=== PATIENT | female | born 1945 | race African-American/Black ===

== ENCOUNTER 2019-05-12 09:42 | Outpatient (CLI) | payer MEDICARE ==
[~2019-05-12] VITALS: Ht 154.9 cm; Wt 61.2 kg
[~2019-05-12 09:42] MED LIST: AMOX1TAB58 PO; DOXY100C14 PO; HYDR-2761 PO; IPRA3AMP29 NEB; LACT1CAP19 PO; PRED50TA PO
[2019-05-12 10:38] LABS: BASO % 1 % (0-3); EOS # 0.1 x10^3/uL (0.0-0.7); EOS % 1 % (0-3); HEMATOCRIT 36.8 % (36.0-47.0); HEMOGLOBIN 12.2 g/dL (12.0-15.5); LYMPH # 1.1 x10^3/uL (1.0-4.8); LYMPH % 16 % (24-48); MEAN CORPUSCULAR HEMOGLOBIN 29 pg (25-35); MEAN CORPUSCULAR HGB CONC 33 g/dL (31-37); MEAN CORPUSCULAR VOLUME 87 fL (79-100); MONO # 0.6 x10^3/uL (0.0-1.1); MONO % 9 % (0-9); NEUT # 4.9 x10^3/uL (1.8-7.7); NEUT % 73 % (31-73); PLATELET COUNT 176 x10^3/uL (140-400); RED BLOOD COUNT 4.24 x10^6/uL (3.50-5.40); WHITE BLOOD COUNT 6.7 x10^3/uL (4.0-11.0)
[2019-05-12] MEDS ORDERED: LIDOCAINE 1%/EPI 1:100,000 20 ML VIAL. ONE (10:38)
[2019-05-12 10:40] LABS: PROTHROMBIN TIME PATIENT 12.1 SEC (11.7-14.0)
[2019-05-12] MEDS ORDERED: HEPARIN PF 500 UNIT/5 ML DISP.SYRIN. ONE (10:56)
[2019-05-12 11:37] VITALS: BP 145/83
[2019-05-12 12:23] LABS: ANISOCYTOSIS SLIGHT; PLT ESTIMATE ADEQUATE (ADEQUATE); TEAR DROP CELLS OCC
[2019-05-12] MEDS ORDERED: MIDAZOLAM HCL/PF 2 MG/2 ML VIAL. ONE (12:59)
[2019-05-12] MEDS ORDERED: ceFAZolin SODIUM IV Push 1 GM VIAL. IVP ONE ×2 (12:59→13:30)
[2019-05-12] MEDS ORDERED: fentaNYL PF VIAL 100 MCG/2 ML VIAL ONE (13:00)
[2019-05-12] MEDS ORDERED: HEPARIN PF 500 UNIT/5 ML DISP.SYRIN. IVP ONE (13:30)
[2019-05-12] MEDS ORDERED: fentaNYL PF VIAL 100 MCG/2 ML VIAL IV ONE (13:30)
[2019-05-12] MEDS ORDERED: LIDOCAINE 1%/EPI 1:100,000 20 ML VIAL. INJ ONE (13:30)
[2019-05-12] MEDS ORDERED: MIDAZOLAM HCL/PF 2 MG/2 ML VIAL. IV ONE (13:30)
[2019-05-12 13:50] VITALS: BP 147/94
[2019-05-12 13:55] VITALS: BP 185/82
[2019-05-12 14:10] VITALS: BP 150/82
[2019-05-12 14:25] VITALS: BP 132/102
[2019-05-12 14:53] VITALS: BP 152/86
--- NOTE | 2019-05-12 15:08 | RAD ---
Procedure: Port-A-Cath placement Clinical Indication: Adult female with lung cancer Sedation: Conscious sedation was administered with a total intraprocedural qoet-xy-lngh time of 33 minutes. The patient was monitored by a qualified independent observer throughout the time of sedation. Please refer to the medical record for exact doses of medications utilized to achieve moderate sedation. Antibiotics: Antibiotic was administered intravenously within 1 hour of the procedure start time. Exposure: Fluoro Time: 0.1 minutes Images: 1 Contrast: None Sterility: All elements of maximal sterile barrier technique including the use of a cap, mask, sterile gown, sterile gloves, large sterile sheet, appropriate hand hygiene, and 2% chlorhexidine for cutaneous antisepsis (or acceptable alternative antiseptic per current guidelines) were followed for this procedure. Consent: The procedure was explained in its entirety to the patient or the patients designated title insurance sales representative by a member of the treatment team, including a discussion of the risks, benefits and commonly accepted alternatives to the procedure, as well as the expected consequences of no therapy whatsoever. Discussion of the risks included, but was not limited to, those that are most frequent and those that are rare but possibly severe or life-threatening, as well as the possibility of unforeseen complications. Technique and Findings: Ultrasound interrogation of the right neck revealed patency and compressibility of the internal jugular vein. A hardcopy ultrasound image was recorded as a 21-gauge micropuncture needle was used to gain access to this vessel. The needle was exchanged over a wire for a peel-away sheath. The skin over the ipsilateral anterior chest wall was then copiously anesthetized with 1% lidocaine plus epinephrine, and a small dermatotomy was made. Blunt dissection techniques were used to create a pocket for the port. The port was then tunneled subcutaneously towards the neck dermatotomy then deployed under fluoroscopic guidance through the peel-away sheath such that the distal tip resided in the proximal right atrium. The port was accessed and found to flush and aspirate with ease. The port was packed with heparin. The pocket was copiously irrigated with sterile saline then closed with deep interrupted and running subcuticular 4-0 Vicryl suture. Dermabond was used to close the neck dermatotomy. Complications: No immediate Impression: 1. Ultrasound and fluoroscopic guided placement of a right IJ Port-A-Cath as described. This port is suitable for use.
--- NOTE | 2019-05-12 15:19 | NUR ---
Discharge Note: CASEY GARCIA Discharge instructions and discharge home medications reviewed with Patient and Daughter in law, and a copy given. All questions have been answered and understanding verbalized. The following instructions and handouts were given: Post moderate sedtion and Implanted port insturctions. Discontinued lines and drains: Right hand IV dc'd and tip intact. Patient discharged to home with Daughter in law via Private car.
== END 2019-05-12 15:26 | disposition home or self-care (01) ==
LOC: INTRAD 09:42
PROVIDERS: ATTEND Internal Medicine Hematology & Oncology
DX: Z45.2 Encounter for adjustment and management of vascular access device (principal); C34.90 Malignant neoplasm of unspecified part of unspecified bronchus or lung; Z79.01 Long term (current) use of anticoagulants
CPT/HCPCS: 36415; 36561; 76937; 77001; 85025; 85610; 99152; 99153; C1751; C1769; C1892; J0690; J2250; J3010; J3490

== ENCOUNTER → 2019-05-20 | Outpatient (CLI) | payer MEDICARE ==
[2019-05-06 11:00] VITALS: BP 132/66
[~2019-05-20] MED LIST changes: +GADOTERATE 7.5 MMOL/15ML VIAL. IVP ONE
--- NOTE | 2019-05-20 10:59 | RAD ---
MRI Brain with and without contrast History: Lung cancer Technique: Multiplanar, multi sequential pre and postcontrast MR imaging was performed of the brain. Comparison: None Findings: There is no nodular parenchymal or leptomeningeal enhancement, midline shift or extra-axial fluid collection. Ventricular size is within normal limits. There is mild prominence of the supratentorial subarachnoid spaces somewhat greater of the parietal lobes likely due to atrophy. There are old lacunar infarcts of the bilateral basal ganglia, thalami, and rose radiata. There is encephalomalacia with cortical involvement as well as gliosis centered in the right parasagittal parietal lobe and superior occipital lobe. There are old lacunar infarcts of the bilateral wilfred. There is other scattered multifocal wozc-yw-oqpaesqu T2 and FLAIR hyperintense signal abnormality of the supratentorial parenchyma bilaterally. There is scattered hemosiderin deposition, evidence of old hemorrhage, most notable of the left caudate nucleus and scattered small foci such as of the bilateral thalami, bilateral basal ganglia, wilfred, and bilateral cerebellum. There is preservation of the major intracranial flow-voids at the skull base. There has been lens surgery bilaterally. Mastoid air cells are overall aerated. Cerebellar tonsils are normal in location. There is preserved marrow signal of the clivus. There is no significant abnormality of pineal gland or pituitary gland. Impression: 1. There is no abnormal intracranial enhancement. 2. There are old infarcts as described, other scattered T2 and FLAIR hyperintense signal abnormality nonspecific although probably due to chronic microvascular ischemic disease. There are multiple old lacunar infarcts as stated, also scattered foci of old microhemorrhage. There is cortical involvement of the old infarct of the right parietal occipital lobes. Electronically signed by: Lloyd Corbin MD (05/20/2019 10:56 AM) [email or web address]
--- NOTE | 2019-05-23 19:13 | RAD ---
EXAM: PET W CT SKULL TO MIDTHIGH EXAM DATE: 05/20/2019 INDICATION: Lung cancer. Initial staging. RADIOPHARMACEUTICAL: 14.6 mCi of F-18 Fluorodeoxyglucose (FDG) I.V. via the right antecubital fossa. TECHNIQUE: Patient weight: 135 pounds. Following at least four-hour fasting, the patient's blood glucose was 80 mg/dl. Approximately 1 hour after administration of FDG, overlapping emission scanning was performed from the orbital meatal line through the pelvis. A low-dose CT was performed for attenuation correction purposes and anatomic localization. Fused images of PET and CT were reviewed. Any standardized uptake values (SUV) reported are maximum values within a volume region of interest, expressed in gm/ml. COMPARISON: CT chest with IV contrast of 05/03/2019 FINDINGS: PET: In the head and neck, right neck mass resembling a level 2 cervical lymph node at the angle of the mandible shows uptake to max SUV of 10.1. Left intraparotid 2.2 cm mass shows uptake to max SUV of 13.1. In the chest, left upper lobe lung mass shows uptake to max SUV of 12.3. AP window lymphadenopathy shows uptake to max SUV of 11.0. No other abnormal FDG uptake identified with the shymp-ep-idef. In particular, no abnormal FDG uptake in the adrenals CT: No significant intracranial abnormalities on noncontrast CT. No additional enlarged cervical lymph nodes besides the hypermetabolic right level 2 node and possible intraparotid left cervical node (versus a salivary gland tumor such as a Warthin tumor) noted on PET. Right tunneled chest port with tip at the cavoatrial junction. Multivessel coronary calcifications. Centrilobular emphysema. Dominant left upper lobe lung mass measures 4.7 x 3.8 x 5.2 cm (AP by transverse by craniocaudal). Mediastinal adenopathy. This is better evaluated on the postcontrast imaging but measures at least 2.2 cm short axis diameter in the AP window. No pleural effusions. Abdomen and pelvis shows fullness to the left greater than right adrenal glands without discrete mass. Dense arterial calcifications and tortuosity is present. Right os acromiale. Osteopenia. No aggressive osseous lesions. IMPRESSION: 1. Left upper lobe 5 cm lung mass with mediastinal adenopathy shows abnormal FDG uptake to max SUV of 12.3 and is consistent with a primary lung malignancy with mediastinal tru metastases. 2. There are bilateral neck masses demonstrating abnormal FDG uptake. These could represent enlarged lymph nodes or less likely salivary gland tumors, especially on the left which is within the left parotid gland. The right mass more closely resembles on CT a level 2 cervical lymph noted rather than a mass between the deep and superficial lobes of the right parotid gland. Ultrasound could be pursued in further evaluation of these masses if it would assist in clinical management. Electronically signed by: Litzy Freire MD (05/23/2019 7:09 PM) [facility]
== END | disposition home or self-care (01) ==
LOC: PETSC 11:34
PROVIDERS: ATTEND Internal Medicine Hematology & Oncology
DX: C34.12 Malignant neoplasm of upper lobe, left bronchus or lung (principal); J43.2 Centrilobular emphysema; G93.89 Other specified disorders of brain; R91.8 Other nonspecific abnormal finding of lung field; R59.0 Localized enlarged lymph nodes; M85.88 Other specified disorders of bone density and structure, other site; I25.10 Atherosclerotic heart disease of native coronary artery without angina pectoris
CPT/HCPCS: 70553; 78815; A9552; A9575

== ENCOUNTER → 2019-08-11 | Outpatient (CLI) | payer MEDICARE ==
[2019-05-06 11:00] VITALS: BP 132/66
[~2019-08-11] MED LIST changes: +CONTRAST GIVEN. MC PRN; -GADOTERATE 7.5 MMOL/15ML VIAL. IVP ONE; +IOHEXOL 240 MG/ML 50ML VIAL. PO ONE; +IOHEXOL 300 MG/ML 100ML VIAL. IV ONE
[2019-08-11 12:35] LABS: CREATININE 0.7 mg/dL (0.6-1.0); GFR 98.7
--- NOTE | 2019-08-11 15:42 | RAD ---
Exam: CT chest and abdomen without intravenous contrast Indication: Small cell lung cancer Comparison: CT chest Technique: Helical CT imaging performed of the chest and abdomen without intravenous contrast. Sagittal and coronal reformats were obtained. One or more of the following individualized dose reduction techniques were utilized for this examination: 1. Automated exposure control 2. Adjustment of the mA and/or kV according to patient size 3. Use of iterative reconstruction technique. Findings: CHEST: Heart and great vessels: Heart is normal in size. No pericardial effusion. There is calcified coronary artery atherosclerosis. Thoracic aorta is normal in caliber. Mild calcified aortic atherosclerosis. Right IJ port tip terminates at the superior cavoatrial junction. Mediastinum and luis: Enlarged AP window lymph node is difficult to measure due to lack of IV contrast but appears smaller, now approximately 2.3 x 2.2 cm, previously 3.0 x 3.3 cm. No new lymphadenopathy. Lungs and pleura: A left suprahilar mass has decreased in size, now 2.9 x 2.1 cm, previously 5.5 x 3.8 cm (image 21, series 2). No new pulmonary nodule. There is mild centrilobular emphysema. No pleural effusion. Chest wall and bones: No axillary lymphadenopathy. Mild thoracic degenerative disc disease. ABDOMEN AND PELVIS: Evaluation of the abdomen mildly limited due to motion artifact. Liver: Normal. Gallbladder/Biliary Tree: There is sludge or vicarious excretion of contrast by gallbladder. Bile ducts are normal. Pancreas: Normal. Spleen: No splenomegaly. Calcified splenic granulomas. Adrenal Glands: Nonspecific thickening of adrenal glands is unchanged. Kidneys and proximal ureters: Normal. No nephrolithiasis or hydronephrosis. Stomach, and visualized portion of the bowel: Normal. Vasculature: No abdominal aortic aneurysm. Moderate calcified aortoiliac atherosclerosis. Lymph Nodes: Unchanged right retrocrural lymph nodes at the level of the diaphragm measuring up to 1.3 cm short axis (image 12, series 3). Small periaortic lymph nodes are unchanged. Peritoneum and retroperitoneum: No free fluid or free air. Bones: No acute osseous abnormality. IMPRESSION: 1. Decreased size of left suprahilar mass. Left AP window lymph node also appears smaller, although comparison is somewhat limited due to lack of IV contrast. 2. Unchanged mildly enlarged right retrocrural lymph nodes at the level the diaphragm. Electronically signed by: Paola Brandon MD (08/11/2019 3:39 PM) [id number]
== END | disposition home or self-care (01) ==
LOC: CT 12:09
PROVIDERS: ATTEND Internal Medicine Hematology & Oncology
DX: C34.12 Malignant neoplasm of upper lobe, left bronchus or lung (principal); R91.1 Solitary pulmonary nodule; R59.0 Localized enlarged lymph nodes; I25.10 Atherosclerotic heart disease of native coronary artery without angina pectoris; I70.0 Atherosclerosis of aorta; J43.2 Centrilobular emphysema; D73.89 Other diseases of spleen; I70.8 Atherosclerosis of other arteries
CPT/HCPCS: 36415; 71250; 74150; 82565; 84520; Q9966

== ENCOUNTER → 2019-09-14 | Outpatient (CLI) | payer MEDICARE ==
[2019-05-06 11:00] VITALS: BP 132/66
[~2019-09-14] MED LIST changes: -CONTRAST GIVEN. MC PRN; -IOHEXOL 240 MG/ML 50ML VIAL. PO ONE; -IOHEXOL 300 MG/ML 100ML VIAL. IV ONE
[2019-09-14 15:34] LABS: BASO % 1 % (0-3); EOS # 0.3 x10^3/uL (0.0-0.7); EOS % 9 % (0-3); HEMOGLOBIN 11.7 g/dL (12.0-15.5); LYMPH # 0.8 x10^3/uL (1.0-4.8); LYMPH % 23 % (24-48); MEAN CORPUSCULAR HEMOGLOBIN 32 pg (25-35); MEAN CORPUSCULAR HGB CONC 33 g/dL (31-37); MEAN CORPUSCULAR VOLUME 95 fL (79-100); MONO # 0.3 x10^3/uL (0.0-1.1); MONO % 10 % (0-9); NEUT # 1.9 x10^3/uL (1.8-7.7); NEUT % 57 % (31-73); PLATELET COUNT 113 x10^3/uL (140-400); RED BLOOD COUNT 3.68 x10^6/uL (3.50-5.40); RED CELL DISTRIBUTION WIDTH 18.5 % (11.5-14.5); WHITE BLOOD COUNT 3.3 x10^3/uL (4.0-11.0)
[2019-09-14 15:48] LABS: CALCIUM 9.1 mg/dL (8.5-10.1); CREATININE 0.9 mg/dL (0.6-1.0); GFR 73.9; POTASSIUM 4.1 mmol/L (3.5-5.1)
[2019-09-14 15:53] LABS: ALBUMIN 3.6 g/dL (3.4-5.0); DIRECT BILIRUBIN 0.1 mg/dL (0.0-0.2); TOTAL BILIRUBIN 0.4 mg/dL (0.2-1.0); TOTAL PROTEIN 7.3 g/dL (6.4-8.2)
== END | disposition home or self-care (01) ==
LOC: ONCLAB 15:00
PROVIDERS: ATTEND Physician Assistant
DX: C34.12 Malignant neoplasm of upper lobe, left bronchus or lung (principal)
CPT/HCPCS: 36415; 80048; 80076; 83615; 85025

== ENCOUNTER 2020-03-15 19:15 | Emergency (ER) | payer MEDICARE ==
[~2020-03-15] VITALS: Ht 154.9 cm; Wt 63.6 kg
[2020-03-15] MEDS ORDERED: methylPREDNISolone SOD SUCC PF 125 MG/2 ML VIAL. IV ONE (19:30)
[2020-03-15 20:00] LABS: BASO % 1 % (0-3); EOS # 0.1 x10^3/uL (0.0-0.7); EOS % 3 % (0-3); HEMATOCRIT 39.2 % (36.0-47.0); HEMOGLOBIN 12.9 g/dL (12.0-15.5); LYMPH # 0.8 x10^3/uL (1.0-4.8); LYMPH % 23 % (24-48); MEAN CORPUSCULAR HEMOGLOBIN 30 pg (25-35); MEAN CORPUSCULAR HGB CONC 33 g/dL (31-37); MEAN CORPUSCULAR VOLUME 90 fL (79-100); MONO # 0.2 x10^3/uL (0.0-1.1); MONO % 7 % (0-9); NEUT # 2.3 x10^3/uL (1.8-7.7); NEUT % 67 % (31-73); PLATELET COUNT 187 x10^3/uL (140-400); RED BLOOD COUNT 4.36 x10^6/uL (3.50-5.40); WHITE BLOOD COUNT 3.5 x10^3/uL (4.0-11.0)
--- NOTE | 2020-03-15 20:05 | PHYS DOC ---
Past Medical History Past Medical History: COPD Past Surgical History: Hysterectomy Smoking Status: Current Every Day Smoker Alcohol Use: Occasionally General Adult EDM: Chief Complaint: SHORTNESS OF BREATH HPI: HPI: Patient is a 74 year old female who presents with shortness of breath for the last 3 days with wheezing and she has a chronic cough. She states she last used her albuterol machine yesterday. She states it did help. Patient denies chest pain, headache, dizziness, abdominal pain, nausea, vomiting, diarrhea, fever, numbness or tingling, vision changes, nasal congestion. Denies any pain at this time. Patient has a history of stage III lung cancer, COPD, smoker. Patient's daughter states that the patient has had chemo and radiation. She sees Dr. Kirkland and now goes to . Review of Systems: Review of Systems: Constitutional: Denies fever or chills. [] Eyes: Denies change in visual acuity. [] HENT: Denies nasal congestion or sore throat. [] Respiratory: + cough or +shortness of breath. [] Cardiovascular: Denies chest pain or edema. [] GI: Denies abdominal pain, nausea, vomiting, bloody stools or diarrhea. [] : Denies dysuria. [] Musculoskeletal: Denies back pain or joint pain. [] Integument: Denies rash. [] Neurologic: Denies headache, focal weakness or sensory changes. [] Endocrine: Denies polyuria or polydipsia. [] Lymphatic: Denies swollen glands. [] Psychiatric: Denies depression or anxiety. [] Heart Score: Risk Factors: Risk Factors: DM, Current or recent (<one month) smoker, HTN, HLP, family history of CAD, obesity. Risk Scores: Score 0 - 3: 2.5% MACE over next 6 weeks - Discharge Home Score 4 - 6: 20.3% MACE over next 6 weeks - Admit for Clinical Observation Score 7 - 10: 72.7% MACE over next 6 weeks - Early Invasive Strategies Current Medications: Current Medications Medications (Trade) Dose Ordered Sig/Xuan Start Time Stop Time Status Last Admin Dose Admin Methylprednisolone Sodium Succinate (SOLU-Medrol 125MG VIAL) 125 mg 1X ONCE 03/15/20 19:30 03/15/20 19:32 DC 03/15/20 19:48 125 MG Allergies: Allergies: Allergies Coded Allergies Type Severity Reaction Last Updated Verified codeine Allergy Severe Hives 05/02/19 Yes Physical Exam: PE: Constitutional: Well developed, well nourished, no acute distress, non-toxic appearance. [] HENT: Normocephalic, atraumatic, bilateral external ears normal, oropharynx moist, no oral exudates, nose normal. [] Eyes: PERRLA, EOMI, conjunctiva normal, no discharge. [] Neck: Normal range of motion, no tenderness, supple, no stridor. [] Cardiovascular:Heart rate tachy regular rhythm, no murmur [] Lungs & Thorax: Bilateral upper breath sounds expiratory inspiratory wheezing, lower lobes diminished to auscultation [] Abdomen: Bowel sounds normal, soft, no tenderness, no masses, no pulsatile masses. [] Skin: Warm, dry, no erythema, no rash. [] Back: No tenderness, no CVA tenderness. [] Extremities: No tenderness, no cyanosis, no clubbing, ROM intact, no edema. [] Neurologic: Alert and oriented X 3, normal motor function, normal sensory function, no focal deficits noted. [] Psychologic: Affect normal, judgement normal, mood normal. [] Current Patient Data: Labs: Laboratory Tests Test 03/15/20 19:48 White Blood Count 3.5 x10^3/uL (4.0-11.0) L Red Blood Count 4.36 x10^6/uL (3.50-5.40) Hemoglobin 12.9 g/dL (12.0-15.5) Hematocrit 39.2 % (36.0-47.0) Mean Corpuscular Volume 90 fL (79-100) Mean Corpuscular Hemoglobin 30 pg (25-35) Mean Corpuscular Hemoglobin Concent 33 g/dL (31-37) Red Cell Distribution Width 15.0 % (11.5-14.5) H Platelet Count 187 x10^3/uL (140-400) Neutrophils (%) (Auto) 67 % (31-73) Lymphocytes (%) (Auto) 23 % (24-48) L Monocytes (%) (Auto) 7 % (0-9) Eosinophils (%) (Auto) 3 % (0-3) Basophils (%) (Auto) 1 % (0-3) Neutrophils # (Auto) 2.3 x10^3/uL (1.8-7.7) Lymphocytes # (Auto) 0.8 x10^3/uL (1.0-4.8) L Monocytes # (Auto) 0.2 x10^3/uL (0.0-1.1) Eosinophils # (Auto) 0.1 x10^3/uL (0.0-0.7) Basophils # (Auto) 0.0 x10^3/uL (0.0-0.2) Laboratory Tests 03/15/20 19:48 EKG: EK and read by Dr Chen as Sinus Tachycardia Rhythm and no stemi [] Radiology/Procedures: Radiology/Procedures: [] Impression: [facility] [id number] [place] [address] IMAGING REPORT Signed PATIENT: CASEY GARCIA: [id number] : 1945 LOCATION: ER AGE: 74 SEX: F EXAM STATUS: REG ER ORD. PHYSICIAN: KELSEY CAST APRN REASON: soa PROCEDURE: PORTABLE CHEST 1V Exam: Chest one view INDICATION: Short of air TECHNIQUE: Frontal view of the chest Comparisons: 05/05/2019 FINDINGS: 1.8 cm nodule in the left suprahilar region. The cardiomediastinal silhouette and pulmonary vessels are within normal limits. The lung and pleural spaces are clear. IMPRESSION: No acute cardiopulmonary process. Decreased size of previously seen lung mass Electronically signed by: Misti Coronado MD (03/15/2020 8:16 PM) [facility] DICTATED and SIGNED BY: MISTI CORONADO MD DATE: 03/15/[id number] 0 [facility] [address] [place], [place] [id number] IMAGING REPORT Signed PATIENT: CASEY GARCIA: [id number] : 1945 LOCATION: ER AGE: 74 SEX: F EXAM STATUS: REG ER ORD. PHYSICIAN: BAFUS,KELSEY M PHYSICIST [employer]STICS REASON: soa, lung ca, OMNI 350 80 ML IV PROCEDURE: CT ANGIOGRAPHY CHEST Exam: CT of chest with contrast INDICATION: Short of air, lung TECHNIQUE: Sequential axial images through the chest obtained following the administration of 80 mL of Omni 350 IV contrast. Sagittal and coronal reformatted images were reconstructed from the axial data and reviewed. 3-D reformatted images were reconstructed from the axial data and reviewed. Comparisons: 08/11/2019 FINDINGS: Visualized portions of the thyroid are unremarkable. No enlarged mediastinal lymph nodes are identified. Heart size is normal. No pericardial effusion. Trace pericardial effusion. Moderate coronary artery calcification. Thoracic aorta has a normal course and caliber. Pulmonary artery is not enlarged. No pulmonary embolus identified within the main, lobar or segmental pulmonary Airways are patent. No consolidation or pneumothorax. Mild centrilobular emphysematous change noted, likely upper lungs. No suspicious lung nodules are identified. There is redemonstration of a partially calcified mass at the upper lobe measuring approximately 2.6 cm, not significant changed compared to the prior study. No pleural effusion or thickening. Visualized upper abdomen. No suspicious osseous lesions or acute fractures IMPRESSION: No pulmonary embolus identified within the main, lobar or segmental pulmonary arteries. Exposure: One or more of the following in the visualized dose reduction techniques were utilized for this examination: 1. Automated exposure control 2. Adjustment of the MA and/or KV according to patient size 3. Use of iterative of reconstructive technique Electronically signed by: Misti Coronado MD (03/15/2020 9:28 PM) [facility] DICTATED and SIGNED BY: MISTI CORONADO MD DATE: 03/15/[id number] 0 Course & Med Decision Making: Course & Med Decision Making Pertinent Labs and Imaging studies reviewed. (See chart for details) See HPI. Respiratory rate 22-24. 97% on room air. Speaks in full clear sentences. Bilateral upper lung lobes have inspiratory expiratory wheezing in lower lung lobes are diminished. Skin pink warm and dry. 2044: Patient is going to leave AMA states she does not want anything that I have ordered for her. States that she will take the breathing treatment. I ordered Solu-Medrol and a breathing treatment. Chest x-ray is clear. I would like to do a CTA of her chest due to her having cancer and her increase in shortness of air. Dr. Chen is going in to speak with the patient to see if she can get her to stay for release the CTA of the chest. Patient is worried that her daughter will leave her that she is been in father to her daughter. Patient is upset because her daughter cannot be back in the room with her. After Dr. Chen spoke with the patient the patient has decided to stay for the CTA. Her daughter will be notified of this. CTA shows no acute findings. Patient remained stable and she will be sent home with ProAir, Flovent and prednisone. Patient is remaining at 96 to 97% on room air. Blood work unremarkable. Patient also received a liter of normal saline in the ED. Patient was offered admission but she is refusing wants to leave. Patient states understanding that she will return for worsening symptoms. [] Dragon Disclaimer: Dragon Disclaimer: This electronic medical record was generated, in whole or in part, using a voice recognition dictation system. Departure Departure Impression: Primary Impression: COPD exacerbation Disposition: 01 DC HOME SELF CARE/HOMELESS Condition: STABLE Referrals: LORI CHAPMAN APRN (PCP) Patient Instructions: Chronic Obstructive Pulmonary Disease Exacerbation Additional Instructions: Follow-up with your primary care provider since possible. Use your albuterol at home every 4-6 hours as needed. Continue taking all your medications. If you begin having severe shortness of breath chest pain return emergency room. Start the prednisone tomorrow. Scripts Fluticasone Propionate (FLOVENT 44MCG HFA) 10.6 Gm Aer.w.adap 2 PUFF IH BID for 30 Days, #1 INHALER 2 Refills Prov: KELSEY CAST APRN 03/15/20 Albuterol Sulfate (PROAIR HFA INHALER) 8.5 Gm Hfa.aer.ad 1 PUFF INH PRN Q6HRS PRN for SHORTNESS OF BREATH, #1 INHALER 0 Refills Prov: KELSEY CAST APRN 03/15/20 Prednisone (PREDNISONE) 50 Mg Tablet 1 TAB PO DAILY, #5 TAB Prov: KELSEY CAST APRN 03/15/20 KELSEY CAST APRN Mar 15, 2020 20:05
[2020-03-15 20:08] LABS: CALCIUM 9.9 mg/dL (8.5-10.1); CREATININE 1.2 mg/dL (0.6-1.0); POTASSIUM 4.2 mmol/L (3.5-5.1)
[2020-03-15 20:13] LABS: ALBUMIN 3.7 g/dL (3.4-5.0); ALBUMIN/GLOBULIN RATIO 0.9 (1.0-1.7); TOTAL BILIRUBIN 0.1 mg/dL (0.2-1.0)
--- NOTE | 2020-03-15 20:19 | RAD ---
Exam: Chest one view INDICATION: Short of air TECHNIQUE: Frontal view of the chest Comparisons: 05/05/2019 FINDINGS: 1.8 cm nodule in the left suprahilar region. The cardiomediastinal silhouette and pulmonary vessels are within normal limits. The lung and pleural spaces are clear. IMPRESSION: No acute cardiopulmonary process. Decreased size of previously seen lung mass Electronically signed by: Misti Kaye MD (03/15/2020 8:16 PM) [facility]
[2020-03-15] MEDS ORDERED: ALBUTEROL SULFATE 2.5 MG/3 ML NEBU. NEB ONE (20:30)
[2020-03-15 21:00] VITALS: BP 154/77
[2020-03-15] MEDS ORDERED: IV NORMAL SALINE 1000ML BAG 1,000 ML IV ONE (21:00)
[2020-03-15] MEDS ORDERED: IOHEXOL 350 MG/ML 100 ML VIAL. IV ONE (21:15)
[2020-03-15] MEDS ORDERED: CONTRAST GIVEN. MC PRN (21:15)
--- NOTE | 2020-03-15 21:30 | RAD ---
Exam: CT of chest with contrast INDICATION: Short of air, lung TECHNIQUE: Sequential axial images through the chest obtained following the administration of 80 mL o f Omni 350 IV contrast. Sagittal and coronal reformatted images were reconstructed from the axial laura a and reviewed. 3-D reformatted images were reconstructed from the axial data and reviewed. Comparisons: 08/11/2019 FINDINGS: Visualized portions of the thyroid are unremarkable. No enlarged mediastinal lymph nodes are identifi ed. Heart size is normal. No pericardial effusion. Trace pericardial effusion. Moderate coronary artery c alcification. Thoracic aorta has a normal course and caliber. Pulmonary artery is not enlarged. No pu lmonary embolus identified within the main, lobar or segmental pulmonary Airways are patent. No consolidation or pneumothorax. Mild centrilobular emphysematous change noted, likely upper lungs. No suspicious lung nodules are identified. There is redemonstration of a partiall y calcified mass at the upper lobe measuring approximately 2.6 cm, not significant changed compared t o the prior study. No pleural effusion or thickening. Visualized upper abdomen. No suspicious osseous lesions or acute fractures IMPRESSION: No pulmonary embolus identified within the main, lobar or segmental pulmonary arteries. Exposure: One or more of the following in the visualized dose reduction techniques were utilized for this examination: 1. Automated exposure control 2. Adjustment of the MA and/or KV according to patient size 3. Use of iterative of reconstructive technique Electronically signed by: Misti Kaye MD (03/15/2020 9:28 PM) [facility]
[2020-03-15] MEDS ORDERED: PRED50TA PO (21:40)
[2020-03-15] MEDS ORDERED: FLUT10.6 IH (21:40)
[2020-03-15] MEDS ORDERED: ALBU2.5V8 INH (21:40)
--- NOTE | 2020-03-16 02:59 | EKG ---
[facility] [address] [place] [address] Test Date: 2020-03-15 Test Time: 19:55:12 Pat Name: CASEY GARCIA Department: Room: Gender: F [employer]: : 1945 Requested By: KELSEY CAST Order Number: [id number] Reading MD: Measurements Intervals [place] Rate: 101 P: 90 MS: 138 QRS: 90 QRSD: 82 T: 98 QT: 336 QTc: 436 Interpretive Statements SINUS TACHYCARDIA QRS(T) CONTOUR ABNORMALITY CONSIDER HIGH LATERAL INFARCT POSSIBLY ABNORMAL ECG RI6.02 No previous ECG available for comparison
== END 2020-03-15 21:50 | disposition home or self-care (01) ==
LOC: ER 19:15
DX: J44.1 Chronic obstructive pulmonary disease with (acute) exacerbation (principal); F17.200 Nicotine dependence, unspecified, uncomplicated; Z88.5 Allergy status to narcotic agent
CPT/HCPCS: 36415; 71045; 71275; 80053; 83880; 84484; 85025; 93005; 94640; 96361; 96374; 99285; J2930; J7030; J7613; Q9967

== ENCOUNTER 2020-10-05 18:44 | Emergency (ER) | payer MEDICARE ==
[~2020-10-05] VITALS: Ht 154.9 cm; Wt 61.0 kg
[~2020-10-05 18:44] MED LIST changes: +ALBU2.5V8 INH; +DOXY-181 PO; -DOXY100C14 PO; +FLUT10.6 IH
--- NOTE | 2020-10-05 19:01 | PHYS DOC ---
Past Medical History Past Medical History: COPD, Other Additional Past Medical Histor: Stage 3 Lung Cx, POOR HISTORIAN Past Surgical History: Hysterectomy Smoking Status: Current Every Day Smoker Alcohol Use: Occasionally General Adult EDM: Chief Complaint: ABDOMINAL PAIN HPI: HPI: 75-year-old female past medical history of tobacco dependence/COPD, former lung cancer and hypertension, presents to the ED BIBEMS with complaints of diffuse, nonradiating abdominal pain for the past 2 days, reports no bowel movement. States she normally does not suffer from constipation. Is tolerating food/drink. Reports no history of GI bleeding, anemia or blood transfusions. Review of Systems: Review of Systems: Constitutional: Denies fever or chills. [] Eyes: Denies change in visual acuity. [] HENT: Denies nasal congestion or sore throat. [] Respiratory: Denies cough or shortness of breath. [] Cardiovascular: Denies chest pain or edema. [] GI: Denies nausea, vomiting, bloody stools or diarrhea. [] : Denies dysuria or hematuria Musculoskeletal: Denies back pain or joint pain. [] Integument: Denies rash os diaporesis Neurologic: Denies headache, focal weakness or sensory changes. [] Endocrine: Denies polyuria or polydipsia. [] Lymphatic: Denies swollen glands. [] Psychiatric: Denies depression or anxiety. [] Heart Score: C/O Chest Pain: No Risk Factors: Risk Factors: DM, Current or recent (<one month) smoker, HTN, HLP, family history of CAD, obesity. Risk Scores: Score 0 - 3: 2.5% MACE over next 6 weeks - Discharge Home Score 4 - 6: 20.3% MACE over next 6 weeks - Admit for Clinical Observation Score 7 - 10: 72.7% MACE over next 6 weeks - Early Invasive Strategies Allergies: Allergies: Allergies Coded Allergies Type Severity Reaction Last Updated Verified codeine Allergy Severe Hives 05/02/19 Yes Physical Exam: PE: Constitutional: Well developed, well nourished, no acute distress, non-toxic appearance, hypertensive HENT: Normocephalic, atraumatic, Eyes: EOMI, conjunctiva normal, no discharge. Neck: Normal range of motion, supple, Cardiovascular: S1/2 present, regular rhythm Lungs & Thorax: Speaking in full sentences, bilateral equal chest rise, no tachypnea or increased work of breathing Abdomen: soft, no guarding/rigidity, no focal areas of ttp, Skin: Warm, dry, no erythema, no rash. [] Back: No tenderness, no CVA tenderness. [] Extremities: No tenderness, no cyanosis, no lower extremity edema Neurologic: Alert and oriented X 3, normal motor function, normal sensory function, no focal deficits noted. [] Psychologic: Affect normal, judgement normal, mood normal. [] Current Patient Data: Vital Signs: Vital Signs Date Time Temp Pulse Resp B/P (MAP) Pulse Ox O2 Delivery O2 Flow Rate FiO2 10/05/20 18:53 98.9 96 34 181/87 (102) 98 Room Air 98.9 EKG: EKG: Sinus rhythm 97 bpm, no axis deviation, normal intervals, T wave inversion aVL, no ST elevations or ST depressions Radiology/Procedures: Radiology/Procedures: []IMAGING REPORT Signed PATIENT: CASEY GARCIA: [id number] : 1945 LOCATION: ER AGE: 75 SEX: F EXAM STATUS: REG ER ORD. PHYSICIAN: JOÃO ORTEGA DO REASON: abd pain PROCEDURE: PORTABLE CHEST 1V EXAMINATION: Chest radiograph. VIEWS: 2 view COMPARISON: 03/15/2020 INDICATION:75 years, Female, abdominal pain. FINDINGS: Normal cardiomediastinal silhouette. Left perihilar opacities with linear reticulations. No pleural effusion or pneumothorax. No acute osseous process. IMPRESSION: Left perihilar opacities with linear reticulations, seen in the region of the previously seen pulmonary mass. Findings suggesting of persistent pulmonary mass and/or posttreatment changes. Clinical correlation is advised. Electronically signed by: Parth Acosta MD (10/05/2020 8:09 PM) [facility] DICTATED and SIGNED BY: PARTH ACOSTA MD DATE: 10/05/[id number] 0 IMAGING REPORT Signed PATIENT: CASEY GARCIA: [id number] : 1945 LOCATION: ER AGE: 75 SEX: F EXAM STATUS: REG ER ORD. PHYSICIAN: JOÃO ORTEGA DO REASON: "stomach pain," hypertensive, r/o dissection PROCEDURE: CT ANGIO CHEST ABD PELVIS INDICATION: Reason: "stomach pain," hypertensive, r/o dissection / Spl. Instructions: 90ML OMNI 350 / History: . COMPARISON: August 11, 2019 TECHNIQUE: Axial CT images obtained through the chest, abdomen and pelvis with and without contrast with three-dimensional images process per angiogram protocol.. One or more of the following individualized dose reduction techniques were utili zed for this examination: 1. Automated exposure control; 2. Adjustment of the mA and/or kV according to patient size; 3. Use of iterative reconstruction technique. FINDINGS: Chest: Emphysematous changes of the lungs. Linear opacity at the left lung adjacent to mediastinum. Could be from post radiation changes if the patient had radiation to the region. Previously identified mass in the left lung is seen within this region of opacity appears partially calcified approximately 23 mm and was previously 29 mm. No evidence of pneumothorax. There is some induration the fat within the mediastinum which could be from posttreatment changes or lymph nodes. Coronary artery calcific atherosclerosis. Atherosclerotic disease throughout the vasculature. No evidence of thoracic aortic dissection. Prominent lymph node right pulmonary hilum measuring approximately 13 mm short axis. Abdomen and pelvis: Repeat demonstration of some fluid adjacent to the upper abdominal aorta on the right seen on prior. No evidence of thoracic aortic dissection or aneurysm. Atherosclerotic disease is seen. No intrahepatic bile duct dilation. No peripancreatic fluid collection Heterogenous enhancement of the spleen which limits evaluation. Nodular thickening of the adrenal glands measuring up to 20 mm on the left appears low density on noncontrast images therefore could be from adenoma. There is some cortical defects at the kidneys which could be from regions of scarring. Subcentimeter low-density left renal lesion too small to characterize. No hydronephrosis. Urinary bladder is partially distended. Moderate amount stool within the distal colon. Portions of the colon wall are mildly prominent thickness suspected appendix does not appear dilated. No dilated loops of bowel to suggest obstruction. Fat-containing umbilical hernia. Degenerative changes throughout the spine with multilevel central canal and neural foraminal stenosis. Scoliotic curvature of spine. IMPRESSION: * Atherosclerotic disease without aortic dissection. * Linear opacities at the left medial lung with masslike structure within. Could be from posttreatment changes. * Portions the colonic wall are mildly prominent. Causes such as colitis not excluded. Electronically signed by: Michael Vallejo MD (10/06/2020 12:48 AM) DESKTOP- [id number] DICTATED and SIGNED BY: MICHAEL VALLEJO MD DATE: 10/06/20 [id number] 0 Course & Med Decision Making: Course & Med Decision Making Pertinent Labs and Imaging studies reviewed. (See chart for details) On reevaluation patient calm, sleeping, in no distress. Ambulates to bathroom without any discomfort. Does have uncontrolled, asymptomatic hypertension with no endorgan damage. CT concerning for masslike lung structure-patient was evaluated for this as a prior inpatient. Patient with no active diarrhea. States pain has resolved. Urinalysis contaminated with no leukocyte esterase or nitrites. Will discharge home with strict ED return precautions were given for recurrent abdominal pain, back pain, syncope or neurologic deficits. Encouraged urgent outpatient follow-up with PMD and GI for definitive management abdominal pain. Life-threatening processes were considered but are low suspicion at this time, given history, physical exam and ED workup. Pt was educated on all prescription medications and adverse effects. All patient's questions were answered and pt was stable at time of discharge. Life/limb-threatening differential includes but is not limited to, aortic dissection, aortic aneurysm, acute coronary syndrome, surgical abdomen (appendicitis, cholecystitis, ischemic bowel, strangulated hernia, etc), bowel obstruction or volvulus, bladder outlet obstruction, gastrointestinal bleeding, inflammatory bowel disease, peptic ulcer disease, ACS/CAD, sepsis, diverticular disease, ureterolithiasis, nephrolithiasis, ovarian or testicular torsion, ectopic , vaginal hemorrhage, or genitourinary infection. I have spoken with the patient and/or caregivers. I explained the patient's condition, diagnoses and treatment plan based on the information available to me at this time. I have answered the patient and/or caregiver's questions and addressed any concerns. The patient and/or caregivers have a good understanding of patient's diagnosis, condition and treatment plan as can be expected at this point. Vital signs have been stable. Patient's condition is stable and appropriate for discharge from the emergency department. Patient will pursue further outpatient evaluation with primary care physician or other designated or consulting physician as outlined in the discharge instructions. The patient and/or caregivers are agreeable to this plan of care and follow-up instructions have been explained in detail. The patient and/or caregivers have received these instructions in written form and have expressed an understanding of the discharge instructions. The patient and/or caregivers are aware that any significant change of condition or worsening of symptoms should prompt immediate return to this or the closest emergency department or call to 911. Cody Disclaimer: Cody Disclaimer: This electronic medical record was generated, in whole or in part, using a voice recognition dictation system. Departure Departure Impression: Primary Impression: Abdominal pain Additional Impression: Uncontrolled hypertension Disposition: HOME / SELF CARE / HOMELESS Condition: STABLE Referrals: LORI CHAPMAN APRN (PCP) in 1- 2days for re-evaluation Patient Instructions: Abdominal Pain, Hypertension Additional Instructions: EMERGENCY DEPARTMENT GENERAL DISCHARGE INSTRUCTIONS Thank you for coming to [facility] Emergency Department (ED) today and trusting us with you care. We trust that you had a positive experience in our Emergency Department. If you wish to speak to the department management, you may call the Director at [phone]. YOUR FOLLOW UP INSTRUCTIONS ARE FOLLOWS: 1. Do you have a private Doctor? If you do not have a private doctor, please ask for a resource list of physicians or clinics that may be able to assist you with follow up care. 2. The Emergency Physicain has interpreted your x-rays. The X-Ray specialist will also review them. If there is a change in the findings, you will be notified in 48 hours when at all possible. 3. A lab test or culture has been done, your results will be reviewed and you will be notified if you need a change in treatment. ADDITIONAL INSTRUCTIONS AND INFORMATION: 1. Your care today has been supervised by a physician who is specially trained in emergency care. Many problems require more than one evaluation for a complete diagnosis and treatment. We recommend that you schedule your follow up appointment as recommended to ensure complete treatment of you illness or injury. If you are unable to obtain follow up care and continue to have a problem, or if your condition worsens, we recommend that you return to the ED. 2. We are not able to safely determine your condition over the phone nor are we able to give sound medical advice over the phone. For these safety reasons, if you call for medical advice we will ask you to come to the ED for further evaluation. 3. If you have any questions regarding these discharge instructions please call the ED at [phone]. SAFETY INFORMATION: In the interest of safety, wellness, and injury prevention; we encourage you to wear your sealbelt, if you smoke; quite smoking, and we encourage family to use a protective helmet for bicycling and other sporting events that present an increased risk for head injury. IF YOUR SYMPTOMS WORSEN OR NEW SYMPTOMS DEVELOP, OR YOU HAVE CONCERNS ABOUT YOUR CONDITION; OR IF YOUR CONDITION WORSENS WHILE YOU ARE WAITING FOR YOUR FOLLOW UP APPOINTMENT; EITHER CONTACT YOUR PRIMARY CARE DOCTOR, THE PHYSICIAN WHOSE NAME AND NUMBER YOU WERE GIVEN, OR RETURN TO THE ED IMMEDIATELY. JOÃO PERAZA DO Oct 05, 2020 19:01
[2020-10-05 19:29] LABS: BASO % 1 % (0-3); EOS # 0.1 x10^3/uL (0.0-0.7); EOS % 3 % (0-3); HEMATOCRIT 39.7 % (36.0-47.0); HEMOGLOBIN 12.9 g/dL (12.0-15.5); LYMPH # 0.8 x10^3/uL (1.0-4.8); LYMPH % 23 % (24-48); MEAN CORPUSCULAR HEMOGLOBIN 29 pg (25-35); MEAN CORPUSCULAR HGB CONC 33 g/dL (31-37); MEAN CORPUSCULAR VOLUME 88 fL (79-100); MONO # 0.3 x10^3/uL (0.0-1.1); MONO % 9 % (0-9); NEUT # 2.4 x10^3/uL (1.8-7.7); NEUT % 64 % (31-73); PLATELET COUNT 165 x10^3/uL (140-400); RED BLOOD COUNT 4.52 x10^6/uL (3.50-5.40); WHITE BLOOD COUNT 3.7 x10^3/uL (4.0-11.0)
[2020-10-05] MEDS ORDERED: IV NORMAL SALINE 1000ML BAG 1,000 ML IV ONE (19:30)
[2020-10-05] MEDS ORDERED: HYDROmorphone 2 MG/ML VIAL IVP ONE ×2 (19:45)
[2020-10-05 19:53] LABS: CALCIUM 9.1 mg/dL (8.5-10.1); CREATININE 0.7 mg/dL (0.6-1.0); GFR 98.4; POTASSIUM 4.2 mmol/L (3.5-5.1)
[2020-10-05 19:59] LABS: ALBUMIN 3.3 g/dL (3.4-5.0); DIRECT BILIRUBIN 0.1 mg/dL (0.0-0.2); MAGNESIUM 2.1 mg/dL (1.8-2.4); TOTAL BILIRUBIN 0.2 mg/dL (0.2-1.0); TOTAL PROTEIN 7.3 g/dL (6.4-8.2)
--- NOTE | 2020-10-05 20:12 | RAD ---
EXAMINATION: Chest radiograph. VIEWS: 2 view COMPARISON: 03/15/2020 INDICATION:75 years, Female, abdominal pain. FINDINGS: Normal cardiomediastinal silhouette. Left perihilar opacities with linear reticulations. No pleural e ffusion or pneumothorax. No acute osseous process. IMPRESSION: Left perihilar opacities with linear reticulations, seen in the region of the previously seen pulmona ry mass. Findings suggesting of persistent pulmonary mass and/or posttreatment changes. Clinical ryann elation is advised. Electronically signed by: Kathy Acosta MD (10/05/2020 8:09 PM) [facility]
[2020-10-05 20:51] LABS: BILIRUBIN,URINE NEGATIVE (NEG); CLARITY,URINE CLEAR; COLOR,URINE YELLOW; NITRITE,URINE NEGATIVE (NEG); PROTEIN,URINE NEGATIVE (NEG-TRACE); UROBILINOGEN,URINE 0.2 mg/dL (0.2 mg/dL)
[2020-10-05 20:59] LABS: AMPHETAMINE/METHAMPHETAMINE NEG (NEG); BARBITURATES NEG (NEG); BENZODIAZEPINES NEG (NEG); CANNABINOIDS NEG (NEG); COCAINE NEG (NEG); METHADONE NEG (NEG); OPIATES NEG (NEG); PHENCYCLIDINE NEG (NEG)
[2020-10-05] MEDS ORDERED: IPRATRPIUM/ALBUTEROL 0.5/2.5MG 3 ML NEBU. NEB ONE (21:00)
[2020-10-05 21:06] LABS: BACTERIA,URINE MODERATE /HPF (0-FEW); RBC,URINE 0 /HPF (0-2)
--- NOTE | 2020-10-05 22:28 | EKG ---
[facility] [address] [place] [address] Test Date: 2020-10-05 Test Time: 19:03:09 Pat Name: CASEY GARCIA Department: Room: Gender: F Interactive Developer: : 1945 Requested By: JOÃO ORTEGA Order Number: [id number] Reading MD: Measurements Intervals [place] Rate: 97 P: 90 MO: 138 QRS: 85 QRSD: 86 T: 75 QT: 340 QTc: 436 Interpretive Statements SINUS RHYTHM QRS(T) CONTOUR ABNORMALITY CONSIDER ANTEROSEPTAL MYOCARDIAL DAMAGE POSSIBLY ABNORMAL ECG RI6.01 No previous ECG available for comparison
[2020-10-05] MEDS ORDERED: IOHEXOL 350 MG/ML 100 ML VIAL. IV ONE (23:30)
[2020-10-05] MEDS ORDERED: CONTRAST GIVEN. MC PRN (23:30)
--- NOTE | 2020-10-06 00:51 | RAD ---
INDICATION: Reason: "stomach pain," hypertensive, r/o dissection / Spl. Instructions: 90ML OMNI 350 / History: . COMPARISON: August 11, 2019 TECHNIQUE: Axial CT images obtained through the chest, abdomen and pelvis with and without contrast with three-d imensional images process per angiogram protocol.. One or more of the following individualized dose reduction techniques were utilized for this examinat ion: 1. Automated exposure control; 2. Adjustment of the mA and/or kV according to patient size; 3 . Use of iterative reconstruction technique. FINDINGS: Chest: Emphysematous changes of the lungs. Linear opacity at the left lung adjacent to mediastinum. Could be from post radiation changes if the patient had radiation to the region. Previously identified mass in the left lung is seen within this region of opacity appears partially c alcified approximately 23 mm and was previously 29 mm. No evidence of pneumothorax. There is some induration the fat within the mediastinum which could be from posttreatment changes or lymph nodes. Coronary artery calcific atherosclerosis. Atherosclerotic disease throughout the vasculature. No evidence of thoracic aortic dissection. Prominent lymph node right pulmonary hilum measuring approximately 13 mm short axis. Abdomen and pelvis: Repeat demonstration of some fluid adjacent to the upper abdominal aorta on the right seen on prior. No evidence of thoracic aortic dissection or aneurysm. Atherosclerotic disease is seen. No intrahepatic bile duct dilation. No peripancreatic fluid collection Heterogenous enhancement of the spleen which limits evaluation. Nodular thickening of the adrenal glands measuring up to 20 mm on the left appears low density on non contrast images therefore could be from adenoma. There is some cortical defects at the kidneys which could be from regions of scarring. Subcentimeter low-density left renal lesion too small to characterize. No hydronephrosis. Urinary bladder is partially distended. Moderate amount stool within the distal colon. Portions of the colon wall are mildly prominent thickn ess suspected appendix does not appear dilated. No dilated loops of bowel to suggest obstruction. Fat-containing umbilical hernia. Degenerative changes throughout the spine with multilevel central canal and neural foraminal stenosis . Scoliotic curvature of spine. IMPRESSION: * Atherosclerotic disease without aortic dissection. * Linear opacities at the left medial lung with masslike structure within. Could be from posttreatme nt changes. * Portions the colonic wall are mildly prominent. Causes such as colitis not excluded. Electronically signed by: Herve Saxena MD (10/06/2020 12:48 AM) [id number]
[2020-10-06 02:14] VITALS: BP 181/84
== END 2020-10-06 03:05 | disposition home or self-care (01) ==
LOC: ER 18:44
DX: R10.84 Generalized abdominal pain (principal); I10 Essential (primary) hypertension; J44.9 Chronic obstructive pulmonary disease, unspecified; F17.200 Nicotine dependence, unspecified, uncomplicated; Z90.710 Acquired absence of both cervix and uterus; Z88.5 Allergy status to narcotic agent
CPT/HCPCS: 36415; 71045; 71275; 74174; 80048; 80076; 80307; 81001; 82550; 83690; 83735; 84484; 85025; 87086; 93005; 94640; 94760; 96361; 96374; 96376; 99285; J1170; J7030; Q9967